=== PATIENT | male | born 1970 | race Caucasian/White ===

== ENCOUNTER → 2016-12-02 | Outpatient (CLI) | payer OTHER, MEDICARE, MEDICAID ==
[2016-10-18 17:44] VITALS: BP 113/96
[~2016-12-02] MED LIST: AMLO10TA2 PO; ATOR10TA60 PO; FENT1PAT15 TD; FENT1PAT17 TD; FLUT16SP NS; FURO40TA4 PO; GABA-586 PO; HYDR-2869 PO; INSU100I13 SQ; INSU100V SQ; INSU100V31 SQ; INSU100V8 SQ; LOSA100T6 PO; METO50TA10 PO; METO50TA2 PO; ONDA4TAB7 PO; OXYC-244 PO; SEVE800T9 PO; SODI650T PO; SULF1TAB24 PO
--- NOTE | 2016-12-02 11:50 | RAD ---
CT abdomen and pelvis without contrast History: End-stage renal disease, on transplant kidney list. Comparison: CT abdomen pelvis 10/12/2015. Technique: Helical CT of the abdomen and pelvis was performed without intravenous or oral contrast. Axial, sagittal, and coronal reconstructions were obtained. One or more of the following individualized dose reduction techniques were utilized for the study: Automated exposure control Adjustment of mA and/or kV according to patient's size Use of iterative reconstruction technique. Findings: Evaluation of the solid organs is limited by lack of intravenous contrast. Evaluation of enteric structures may be limited by lack of oral contrast. Liver, spleen, pancreas, gallbladder, and bilateral adrenal glands are unremarkable. There is no evidence of bowel obstruction. No free air or free fluid is identified in the abdomen or pelvis. Appendix appears within normal limits. Urinary bladder is unremarkable. Relatively mild aortic calcified atherosclerosis is seen, but there is extensive, diffuse calcification of smaller arteries throughout the abdomen and pelvis. Extensive calcifications of the vas deferens can be seen. These findings are compatible with provided history of diabetes. Bilateral kidneys and ureters are free of stone or obstruction. Both renal arterial systems demonstrate diffuse arterial calcifications. Circumaortic left renal vein is seen. There are 2 left and one right renal arteries. Penile prosthesis is seen. The reservoir for prosthesis is identified in the right hemipelvis adjacent to the urinary bladder. The right hip demonstrates fixation hardware. Impression: 1. No acute abnormality identified in the abdomen or pelvis. No evidence of urinary stone. 2. Extensive small vessel calcifications, compatible with provided history of diabetes.
== END | disposition home or self-care (01) ==
LOC: CT 10:25
PROVIDERS: ATTEND Internal Medicine Nephrology
DX: Z01.818 Encounter for other preprocedural examination (principal); N18.6 End stage renal disease; E11.9 Type 2 diabetes mellitus without complications
CPT/HCPCS: 74176

== ENCOUNTER → 2017-01-26 | Outpatient (CLI) | payer MEDICARE, MEDICAID ==
[~2017-01-26] MED LIST changes: -FLUT16SP NS; +FLUT16SP21 NS; -OXYC-244 PO; +OXYC-327 PO
[2017-01-26 11:10] VITALS: BP 108/74
--- NOTE | 2017-01-26 11:25 | NUR ---
PT needed tunneled catheter removed. Sutures cut and resistance met. Called Vascular lab for advice. Said there is a cuff 4 cm in and if you tug well cuff will come out. Firmly worked cuff out and removed catheter with ease. Tip in tact. PT tolerated well. Ike CANNON
== END | disposition home or self-care (01) ==
LOC: OPS 10:51
PROVIDERS: ATTEND Internal Medicine Infectious Disease
DX: A41.9 Sepsis, unspecified organism (principal)
CPT/HCPCS: 99211

== ENCOUNTER → 2017-03-08 | Outpatient (CLI) | payer MEDICARE, MEDICAID ==
[2017-01-26 11:10] VITALS: BP 108/74
== END | disposition home or self-care (01) ==
LOC: LAB 09:31
PROVIDERS: ATTEND Internal Medicine Nephrology
DX: N18.6 End stage renal disease (principal); Z99.2 Dependence on renal dialysis
CPT/HCPCS: 36415; 85610

== ENCOUNTER → 2017-06-23 | Outpatient (CLI) | payer MEDICARE, MEDICAID ==
[2017-01-26 11:10] VITALS: BP 108/74
[~2017-06-23] MED LIST changes: -METO50TA10 PO; +METO50TA29 PO
--- NOTE | 2017-06-23 09:49 | RAD ---
INDICATION: SHORT OF AIR COMPARISON: 07/17/2016 FINDINGS: 2 views of chest obtained. Cardiac silhouette is again mildly prominent in size. There is a presumed vascular stent at the right upper mediastinum. Degenerative changes the spine. No definite new region of focal airspace consolidation. IMPRESSION: No definite focal airspace consolidation.
== END | disposition home or self-care (01) ==
LOC: DXRAD 09:17
PROVIDERS: ATTEND Internal Medicine Nephrology
DX: I13.2 Hypertensive heart and chronic kidney disease with heart failure and with stage 5 chronic kidney disease, or end stage renal disease (principal); M47.899 Other spondylosis, site unspecified; M51.36 Other intervertebral disc degeneration, lumbar region
CPT/HCPCS: 71020

== ENCOUNTER → 2017-08-18 | Outpatient (CLI) | payer MEDICARE, MEDICAID ==
[2017-01-26 11:10] VITALS: BP 108/74
[~2017-08-18] MED LIST changes: -METO50TA2 PO; +METO50TA6 PO
--- NOTE | 2017-08-18 09:47 | RAD ---
Ultrasound of the thyroid gland 08/18/2017 Clinical history: Elevated PTH. Technique: A real-time ultrasound examination of the thyroid gland was performed. Multiple images were obtained. Findings: No previous studies are available for comparison. The thyroid gland is within normal limits in size. The right lobe of thyroid gland measures 4.5 x 2.5 x 2.2 cm in longitudinal, transverse, and AP dimensions. The left lobe of thyroid gland measures 4.7 x 2.1 x 2.0 cm in size. The isthmus of the thyroid gland measures 5 mm in thickness. A 2 mm rounded predominantly anechoic structure is seen involving the inferior aspect of the right lobe of the thyroid gland. A 3 mm oval-shaped anechoic structure seen involving the mid aspect of the left thyroid gland. These may represent colloid cysts. Immediately inferior to the left lobe of the thyroid gland, a hypoechoic oval-shaped structure is seen which measures 1 cm in greatest diameter. This is felt to most likely represent the inferior left parathyroid gland and is felt to be mildly enlarged. This is concerning for a parathyroid adenoma. This could be confirmed with a parathyroid scan if clinically warranted. Impression: 1 cm hypoechoic oval-shaped structure is seen inferior to the left lobe of the thyroid gland which is concerning for a parathyroid adenoma as outlined above.
== END | disposition home or self-care (01) ==
LOC: US 07:49
PROVIDERS: ATTEND Internal Medicine Nephrology
DX: E21.3 Hyperparathyroidism, unspecified (principal); I13.2 Hypertensive heart and chronic kidney disease with heart failure and with stage 5 chronic kidney disease, or end stage renal disease; E11.22 Type 2 diabetes mellitus with diabetic chronic kidney disease; N18.6 End stage renal disease; I50.9 Heart failure, unspecified; Z79.4 Long term (current) use of insulin; Z87.891 Personal history of nicotine dependence
CPT/HCPCS: 76536

== ENCOUNTER → 2017-10-20 | Outpatient (CLI) | payer MEDICARE, MEDICAID ==
[2017-01-26 11:10] VITALS: BP 108/74
--- NOTE | 2017-10-20 12:09 | RAD ---
Radionuclide parathyroid scan, 10/20/2017: History: Elevated parathormone level Imaging of the lower neck was performed following IV injection of 20 mCi of technetium 99m sestamibi. Initial and 3 hour delayed imaging was performed. The lower neck activity is symmetric. No significant focal area of persistent abnormal uptake is seen. IMPRESSION: Negative radionuclide parathyroid scan
== END | disposition home or self-care (01) ==
LOC: NM 07:39
PROVIDERS: ATTEND Internal Medicine Nephrology
DX: I12.0 Hypertensive chronic kidney disease with stage 5 chronic kidney disease or end stage renal disease (principal); E11.22 Type 2 diabetes mellitus with diabetic chronic kidney disease; N18.6 End stage renal disease; E21.3 Hyperparathyroidism, unspecified
CPT/HCPCS: 78070; 96374; A9500